=== PATIENT | female | born 2000 | race Caucasian/White ===

== ENCOUNTER 2024-09-03 13:46 | Emergency (ER) | payer OTHER ==
[~2024-09-03] VITALS: Ht 162.6 cm; Wt 83.9 kg
[2024-09-03 14:37] VITALS: PULSE 72; RESP 16; TEMP 97.6
[2024-09-03 15:07] LABS: BASOPHILS % 0.3 % (0.0-1.0); EOSINOPHILS % 0.3 % (0.0-6.0); LYMPHOCYTES % 26.2 % (18.0-39.1); MONOCYTES % 8.2 % (4.4-11.3); NEUTROPHILS % 64.7 % (38.7-80.0); RED CELL DISTRIBUTION WIDTH 12.5 % (11.7-14.4)
[2024-09-03 15:18] LABS: LEUKOCYTE ESTERASE ,URINE NEGATIVE (NEGATIVE); PROTEIN,URINE DIPSTICK TRACE (NEGATIVE); URINE UROBILINOGEN 0.2 mg/dL (0.2 - 1)
[2024-09-03 15:30] LABS: EST GLOMERULAR FILTRATION RATE 95.0 ML/MIN (>=60)
[2024-09-03 15:50] LABS: EPITHELIAL CELLS,URINE FEW /LPF
[2024-09-03] MEDS ORDERED: NAPROSYN500 MG PO (19:35)
[2024-09-03] MEDS ORDERED: CYCLOBENZAPRINE5 MG PO (19:35)
[2024-09-03 20:51] VITALS: BP 128/66; PULSE 77; RESP 18; TEMP 97.6; O2SAT 100
== END 2024-09-03 19:40 | disposition home or self-care (01) ==
LOC: ER 19:36
DX: S39.011A Strain of muscle, fascia and tendon of abdomen, initial encounter (principal); S39.012A Strain of muscle, fascia and tendon of lower back, initial encounter; X50.0XXA Overexertion from strenuous movement or load, initial encounter; Y92.89 Other specified places as the place of occurrence of the external cause
CPT/HCPCS: 36415; 74177; 80053; 81001; 84702; 85025; 99284